=== PATIENT | male | born 1980 | race Caucasian/White ===

== ENCOUNTER 2019-03-12 01:52 | Emergency (ER) | payer SELFPAY ==
[~2019-03-12] VITALS: Ht 170.2 cm; Wt 104.0 kg
[2019-03-12 02:41] LABS: BASOPHILS % 0.5 % (0.0-2.0); EOSINOPHILS % 1.3 % (0.0-5.0); HEMATOCRIT. 46.5 % (42.0-52.0); HEMOGLOBIN. 16.1 g/dL (14.0-18.0); LYMPHOCYTES % 22.8 % (20.0-50.0); MEAN CORPUSCULAR HEMOGLOBIN 30.4 pg (28.0-32.0); MEAN CORPUSCULAR VOLUME 87.4 fL (80.0-94.0); MEAN PLATELET VOLUME 7.3 fl (7.4-10.4); MONOCYTES % 5.8 % (2.0-8.0); NEUTROPHILS % 69.6 % (40.0-76.0); PLATELET 339 x1000/uL (130-400); RED BLOOD CELL COUNT 5.32 mill/uL (4.7-6.1)
[2019-03-12 02:42] LABS: CHLORIDE 106 mEq/L (98-107)
[2019-03-12] MEDS ORDERED: MORPHINE SULFATE 4 MG/ML CPJ (NOT FOR IM USE) IV ONE (02:45)
[2019-03-12] MEDS ORDERED: ONDANSETRON HCL 4MG/2ML INJ IV ONE (02:45)
[2019-03-12] MEDS ORDERED: FAMOTIDINE 20MG/2ML VIAL IV SCH (03:15)
[2019-03-12 05:34] VITALS: BP 117/72
== END 2019-03-12 05:36 | disposition home or self-care (01) ==
LOC: ER 01:52
DX: K29.70 Gastritis, unspecified, without bleeding (principal); I10 Essential (primary) hypertension
CPT/HCPCS: 36415; 71045; 80053; 83880; 84484; 85025; 93005; 96374; 96375; 99284; J2270; J2405; J3490; Z7610

== ENCOUNTER 2020-03-04 11:48 | Emergency (ER) | payer SELFPAY ==
[~2020-03-04] VITALS: Ht 170.2 cm; Wt 102.0 kg
[2020-03-04 11:58] VITALS: BP 134/108
== END 2020-03-04 14:45 | disposition left against medical advice (07) ==
LOC: ER 14:43
DX: Z53.21 Procedure and treatment not carried out due to patient leaving prior to being seen by health care provider (principal); I10 Essential (primary) hypertension
CPT/HCPCS: 93005